=== PATIENT | female | born 1955 | race Caucasian/White ===

== ENCOUNTER → 2018-02-08 | Outpatient (CLI) | payer OTHER, MEDICARE ==
[~2018-02-08] VITALS: Ht 157.5 cm; Wt 81.6 kg
[~2018-02-08] MED LIST: CLONAZEPAM 0.50.5 M1 PO; COMPAZINE25 MG RECTAL; CYMBALTA60 MG PO; SEROQUEL 50 MG50 MG PO; SYNTHROID50 MCG PO; TOLTERODINE TART4 MG PO; TRAZODONE HCL50 MG PO
--- NOTE | ~2018-02-08 | P ---
[facility] [place] [address] PROCEDURE REPORT Name: JOSÉ MIGUELRANJANA Chino Room #: REG FELICIANO Gabriel#: [id number] Admission: 02/08/18 Attend Phys: New Amin MD Discharge: Date of : 51 Report #: [id number] THIS REPORT FOR: //name// CC: New Ely MD BRIEF HISTORY: The patient is a 62-year-old woman here for her first average risk screening colonoscopy. PREOPERATIVE DIAGNOSIS: Average risk screening colonoscopy. POSTOPERATIVE DIAGNOSIS: Diminutive polyp, proximal ascending colon. MEDICATIONS: Deep sedation with propofol per Anesthesia. SPECIMEN: Polyp from proximal ascending colon. ESTIMATED BLOOD LOSS: 3 mL. PROCEDURE: Colonoscopy to cecum and terminal ileum with biopsy. FINDINGS: Prior to propofol sedation, procedure of colonoscopy discussed with the patient as well as potential risks and its complications. She indicates she understands and desires to proceed. DESCRIPTION OF PROCEDURE: With the patient in left lateral decubitus position, digital examination was completed, which revealed no abnormalities. Subsequently, Olympus video colonoscope was introduced in the rectum, advanced under direct vision to the cecum. Done with minimal difficulty. The cecum was identified by the ileocecal valve and the appendiceal orifice. I was able to visualize the distal segment of terminal ileum, which was inspected and noted to be unremarkable. At that point, the scope was slowly withdrawn and careful circumferential views were obtained. Upon slow withdrawal of the scope, the prep was excellent. Mucosa was within normal limits, normal vascular pattern, normal light reflex. As we withdrew the scope, about 4-5 mm sessile polyp was seen in the proximal ascending colon, removed with biopsy forceps. Scope was further withdrawn and no additional neoplastic changes were seen. The mucosa throughout the remainder of the colon was within normal limits. Scope was withdrawn in the rectum. Upon retroflexion, no abnormalities were seen. Scope was withdrawn. The patient tolerated the procedure well. CONDITION OF THE PATIENT UPON DISCHARGE: Following procedure, the patient drowsy, arousable and conversant and will be discharged home when fully ambulatory. INSTRUCTIONS TO THE PATIENT AND FAMILY AT THE TIME OF DISCHARGE: We will follow [place] [address] [place] [address] PROCEDURE REPORT Name: RANJANA VALDEZ Room #: REG [facility].#: [id number] Admission: 02/08/18 Attend Phys: New Amin MD Discharge: Date of : 51 Report #: [id number] up on the path of the polyp. If this is an adenoma, she is to return in 5 years; if it is not an adenoma, 10 years would be indicated. This is the patient's first colonoscopy. Withdrawal time from cecum was 12 minutes 44 seconds. <ELECTRONICALLY SIGNED> By: New Amin MD 02/09/18 1030 [id number] [id number] New Amin MD /nt
--- NOTE | ~2018-02-08 | PATH ---
[facility] [address] [place] [address] PATHOLOGY RPT PROCEDURE Name: RANJANA VALDEZ Room #: REG [facility] Ina.#: [id number] Admission: 02/08/18 Date of : 51 Discharge: Report #: [id number] Path Case #: [id number] [facility] Accession Number: [id number] . 01 Material submitted: . PROXIMAL ASCENDING POLYP . 01 Clinical history: . Pre-OP DX: Screening Post-OP DX: Polyp . 02 Diagnosis: Polyp, proximal ascending colon polyp, endoscopic biopsy: - Tubular adenoma. - Negative for high-grade dysplasia. (IUV:pit 02/11/2018) QTP/02/11/2018 . 02 Electronically signed: . Brooklynn Fowler MD, Pathologist NPI- [id number] . 01 Gross description: . Received in formalin labeled "Ranjana Valdez, proximal ascending polyp," are 3 segments of reid soft tissue measuring 1.0 x 0.8 x 0.2 cm in aggregate dimensions and ranging from 0.2 to 0.4 cm in maximum dimension. The specimen is submitted entirely in cassette A1. (TSD; 02/08/2018) TOB/TOB . 02 Pathologist provided ICD-10: D12.2 . 02 CPT . 867781 Specimen Comment: A courtesy copy of this report has been sent to Specimen Comment: [phone], . Specimen Comment: Report sent to / DR SHIELDS Performed at: [address], [place], [place] [id number] MD Randall Pickering MD Phone: [phone] Performed at: [address] [id number] MD Brooklynn Fowler MD Phone: [phone]
== END | disposition home or self-care (01) ==
LOC: GI 01-31 15:16
DX: Z12.11 Encounter for screening for malignant neoplasm of colon (principal); D12.2 Benign neoplasm of ascending colon; G43.909 Migraine, unspecified, not intractable, without status migrainosus; E03.9 Hypothyroidism, unspecified; F32.9 Major depressive disorder, single episode, unspecified; F17.210 Nicotine dependence, cigarettes, uncomplicated; Z90.710 Acquired absence of both cervix and uterus; Z98.890 Other specified postprocedural states; Z79.899 Other long term (current) drug therapy
CPT/HCPCS: 62110; 62900